=== PATIENT | female | born 1970 | race Caucasian/White ===

== ENCOUNTER 2019-07-07 10:03 | Outpatient (REF) | payer MEDICAID, SELFPAY ==
[2019-07-07 18:05] LABS: HCT 39.3 % (36.0-46.0); Mean Corp. HGB Concentration 33.1 g/dL (32.0-36.0); Mean Corpuscular Hemoglobin 27.8 pg (27.0-33.0); Mean Corpuscular Volume 84.2 fL (80-95); Mean Platelet Volume 10.3 fL (8.0-11.0); Platelet Count 215 x1000/uL (130-400); RBC 4.67 m/cumm (4.00-5.20); RBC Distribution Width 13.5 % (11.7-14.6); White Blood Cell Count 10.14 k/cumm (4.4-10.8)
[2019-07-07 18:22] LABS: ALT 25 U/L (14-59); AST 19 U/L (15-37); Albumin 4.2 g/dL (3.4-5.0); Alkaline Phosphatase 73 U/L (46-116); Anion Gap 10.4 mmol/L (3-11); BUN 14 mg/dL (7-18); Bilirubin, Total 0.3 mg/dL (0.2-1.0); CO2 24.6 mmol/L (21.0-32.0); CREATININE 0.76 mg/dL (0.55-1.02); Calcium 9.2 mg/dL (8.5-10.1); Chloride 106 mmol/L (98-107); Glucose 111 mg/dL (70-100); Potassium 4.6 mmol/L (3.5-5.1); Sodium 141 mmol/L (136-145); Total Protein 7.1 g/dL (6.4-8.2)
[2019-07-07 19:07] LABS: Hemoglobin A1C 5.7 % (4.5-6.2)
== END 2019-07-07 10:23 ==
LOC: NCHCN 10:03
PROVIDERS: PCP Nurse Practitioner Family; Visit Provider Nurse Practitioner Family
DX: R20.0 Anesthesia of skin (principal); R20.2 Paresthesia of skin; Z00.00 Encounter for general adult medical examination without abnormal findings
CPT/HCPCS: 80053; 85027; 83036

== ENCOUNTER 2019-07-14 10:27 | Outpatient (CLI) | payer MEDICAID, SELFPAY ==
--- NOTE | 2019-07-14 10:10 | DI.RAD_ITS ---
EXAM: XR HAND RT COMPLETE INDICATION: SWELLING M79.89. COMPARISON: No exams were available for comparison TECHNIQUE: 2D digital imaging was performed. FINDINGS: Three views were obtained. No bony abnormality seen. IMPRESSION:
== END 2019-07-14 10:47 ==
PROVIDERS: PCP Nurse Practitioner Family; Visit Provider Nurse Practitioner Family
DX: M79.89 Other specified soft tissue disorders (principal); R22.31 Localized swelling, mass and lump, right upper limb; M79.641 Pain in right hand
CPT/HCPCS: 73130

== ENCOUNTER 2019-07-17 01:10 | Outpatient (CLI) | payer MEDICAID, SELFPAY ==
--- NOTE | 2019-07-17 10:20 | DI.MAMMO_ITS ---
EXAM: MG MAMMO SCREENING CLINICAL HISTORY: SCREENING Z00.00 [facility]. TECHNIQUE: Mammograms were interpreted according to the usual protocol including computer analysis w MD2U CAD system, tomosynthesis and C-view imaging. COMPARISON: [id number] FINDINGS: The breasts are heterogeneously dense, which may obscure small masses, BI-RADS category C. There are no suspicious masses or microcalcifications. There are no significant changes in comparison with the prior images. IMPRESSION: BI-RADS Cat 1 - Negative Breast Density - Category C - Heterogeneously dense
== END 2019-07-17 01:30 ==
PROVIDERS: PCP Nurse Practitioner Family; Visit Provider Nurse Practitioner Family
DX: Z12.31 Encounter for screening mammogram for malignant neoplasm of breast (principal)
CPT/HCPCS: 77063; 77067

== ENCOUNTER 2020-03-17 10:12 | Outpatient (REF) | payer MEDICAID, SELFPAY ==
[2020-03-18 18:58] LABS: COVID-19 RT-PCR Result Not Detected ((See Note))
== END 2020-03-17 10:32 ==
LOC: LBN 10:12
PROVIDERS: PCP Nurse Practitioner Family; Referring Provider Family Medicine; Visit Provider Nurse Practitioner Adult Health
DX: Z11.59 Encounter for screening for other viral diseases (principal)
CPT/HCPCS: U0003

== ENCOUNTER 2020-06-25 21:18 | Emergency (ER) | payer MEDICAID, SELFPAY ==
[2020-06-25 21:21] VITALS: BP 173/77; PULSE 86; RESP 16; TEMP 36.6; O2SAT 100
--- NOTE | 2020-06-25 21:34 | W.ED.GENAD ---
Discharge Plan Disposition Patient Disposition: HOME Condition: Stable Discharge Details Clinical Impression: Conjunctivitis Primary Care Provider: John Zambrano ED Provider: Shahid Arriaga Home Meds and New Rx's Prescriptions: Continued ibuprofen 800 MG tablet 800 mg PO TID Qty: 30 RF: 2 Mirena 1 EACH intrauterine device 1 ea Intrauterine ONCE Qty: 1 RF: 0 Discharge Instructions Instructions: Conjunctivitis (ED) Additional Instructions: use the ciprofloxacin drops in each eye three times a day for 5 days if not improving in 3 days follow up with your eye technical healthcare consultant if you have severe worsening pain or decreased vision return to the emergency department Medical Decision Making 50 yo female comes in with several days of feeling her eyes are both dry and tonight had some discharge so came here. Denies trauma or falls. HAs no deep eye pain and no vision changes. On exam has 20/30 vision in both eyes individually with her glasses. No periorbital swelling, perrl, eomi. Both eyes have mild erythema of the conjunctiva with no discharge on exam and normal appearing iris. Symptoms and exam consistent with conjunctivitis, will start antibiotic drops and advised f/u with eyelet cutter if not improving and return precautions given Differential Diagnosis Differential Diagnosis: conjunctivitis, allergies HPI General Mode of arrival: ambulatory. Date/Time Provider Initiated Documentation: 06/25/20 21:18. Limitations to Documentation: no limitations. Information obtained by: patient. History of Present Illness 50 year old F presents to the emergency department with the chief complaint of eye irritation, described as moderate, and it has been constant. No relieving factors improve symptom(s), No exacerbating factors reported . Patient did receive the following treatments prior to arrival, none Related Data Home Medications Medication Instructions Recorded Confirmed ibuprofen 800 mg PO TID #30 tab-cap 01/10/14 06/25/20 Mirena 1 ea INTRAUTERINE ONCE #1 implant 04/07/18 06/25/20 Allergies Allergy/AdvReac Type Severity Reaction Status Date / Time acetaminophen [From Vicodin] Allergy Mild very itchy Unverified 06/25/20 21:29 hydrocodone bitartrate Allergy Mild very itchy Unverified 06/25/20 21:29 [From Vicodin] erythromycin base Allergy Unknown Skin Rash Unverified 06/25/20 21:29 Penicillins Allergy Unknown Skin Rash Unverified 06/25/20 21:29 General Stated Complaint: EyeProblem BERNADETTE: 5 Review of Systems All systems reviewed & are unremarkable except as noted in HPI and below Constitutional Constitutional: Denies chills, Denies fever(s) and Denies weakness Cardiovascular Cardiovascular: Denies chest pain and Denies dyspnea Respiratory Respiratory: Denies cough and Denies dyspnea Gastrointestinal Gastrointestinal: Denies abdominal pain, Denies nausea and Denies vomiting Musculoskeletal Musculoskeletal: Denies joint swelling Neurologic Neurologic: Denies weakness [facility] Medical History (Updated 06/25/20 @ 21:38 by Shahid Arriaga MD) Abnormal Pap smear of cervix 2007-treated with cryotherapy contraceptive management Mirena IUD most recent was inserted 2014. Cyst of breast, left, benign solitary s/p drainage 2010 Flank pain 2012 had episode of flank pain, seen in ED. Nl renal u/s Mastitis, left, acute Tobacco dependence, continuous pre-contemplative Surgical History (Updated 07/27/18 @ 14:35 by [facility]) Biopsy of breast (~2017) [facility] [place] right breast. Benign section x2. fine needle aspiration of left breast cyst Open Carpal Tunnel release Social History Smoking/Tobacco Use Status: Current every day Tobacco Type: cigarettes Alcohol Intake: never Drug use: Never Substance use type: does not use Do you feel safe at home: Yes Do you feel safe in your relationship?: Yes Exam Const General: no acute distress Orientation: alert [facility] Head: normal to inspection Ears: external ears normal General nose exam: external nose normal Mouth: moist mucous membranes Eyes Alignment and Position: alignment normal Neck Neck: normal visual inspection Resp Effort & Inspection: normal respiratory effort and able to speak in complete sentences Cardio Rate: regular rate Skin General skin exam: no rashes or lesions noted Neuro General: patient alert and patient oriented x3 Extrem General: normal to inspection Psych Mental Status: mental status grossly normal Course Vital Signs Vital signs: Vital Signs Temperature 36.6 C 06/25/20 21:21 Pulse 86 06/25/20 21:21 Respiratory Rate 16 06/25/20 21:21 Blood Pressure 173/77 H 06/25/20 21:21 Pulse Oximetry 100 06/25/20 21:21 Temperature 36.6 C 06/25/20 21:21 Temperature Source Temporal Artery Scan 06/25/20 21:21 Pulse 86 06/25/20 21:21 Respiratory Rate 16 06/25/20 21:21 Respiratory Effort Non-Labored 06/25/20 21:27 Blood Pressure 173/77 H 06/25/20 21:21 Blood Pressure Position Sitting 06/25/20 21:21 Pulse Oximetry 100 06/25/20 21:21 Oxygen Delivery Method Room Air 06/25/20 21:21 Oxygen Flow Rate 0 06/25/20 21:21 Pain Level 6 06/25/20 21:21 Comment 06/25/20 21:21
[2020-06-25] MEDS: Ciprofloxacin 0.3% 2.5 ML BTL OU (21:56)
== END 2020-06-25 22:05 | disposition home or self-care (01) ==
PROVIDERS: Emergency Provider Emergency Medicine; PCP Nurse Practitioner Family
DX: H57.89 Other specified disorders of eye and adnexa (principal); H10.33 Unspecified acute conjunctivitis, bilateral
CPT/HCPCS: 99283

== ENCOUNTER 2020-07-06 15:49 | Outpatient (REF) | payer MEDICAID, SELFPAY ==
[2020-07-09 14:00] LABS: Patient Race White; SARS-CoV-2 RNA Undetected (Undetected); SARS-CoV-2 Specimen Source Nasopharynx
== END 2020-07-06 16:09 ==
LOC: LBN 15:49
PROVIDERS: PCP Nurse Practitioner Family; Visit Provider Nurse Practitioner Adult Health
DX: Z11.59 Encounter for screening for other viral diseases (principal)
CPT/HCPCS: U0003

== ENCOUNTER 2020-07-18 16:23 | Outpatient (REF) | payer MEDICAID, SELFPAY ==
--- NOTE | 2020-07-18 15:30 | PAPFT_PTH ---
PATIENT: Angelika De Leon LOC: [facility] U#:[id number] AGE/SX: 50/F ROOM: RE07/18/[address]: Queenie Leyva : 1970 BED: DIS: 07/18/2020 SPEC #: [id number] RECD: 07/18/20 17:34 STATUS: SUGAR REBerry #: [id number] HOLDEN: 07/18/20 15:[address]: Queenie Leyva DEPT: [facility] Cytology RECD BY: Hanane Orellana ENTERED: 07/18/20 17:35 SP TYPE: PAPFT OTHR DR: John Zambrano Tissues: 1 - CX/ENDOCX FOR PAP SMEARS Procedures: PAP THIN PREP/UVM Screening HPV DNA PROBE Comments: [id number]
== END 2020-07-18 16:43 ==
LOC: LBN 16:23
PROVIDERS: PCP Nurse Practitioner Family; Visit Provider Obstetrics & Gynecology Gynecology
DX: Z12.4 Encounter for screening for malignant neoplasm of cervix (principal)
CPT/HCPCS: 88142; 87624

== ENCOUNTER 2021-05-26 16:18 | Outpatient (REF) | payer MEDICAID, SELFPAY ==
[2021-05-26 19:08] LABS: Hemoglobin A1C 5.9 % (<5.7)
[2021-05-26 19:11] LABS: Calculated LDL 111 mg/dL (<100); Cholesterol 183 mg/dL (<200); HDL Cholesterol 50 mg/dL (40-60); Triglyceride 110 mg/dL (<150)
== END 2021-05-26 16:19 | disposition home or self-care (01) ==
LOC: NCHCN 16:18
PROVIDERS: PCP Nurse Practitioner Family; Visit Provider Family Medicine
DX: R73.03 Prediabetes (principal); N64.4 Mastodynia; Z13.220 Encounter for screening for lipoid disorders; Z00.00 Encounter for general adult medical examination without abnormal findings
CPT/HCPCS: 80061; 83036

== ENCOUNTER 2021-07-08 02:26 | Outpatient (CLI) | payer MEDICAID, SELFPAY ==
--- NOTE | 2021-07-08 | DI.US_ITS ---
Exam(s) MAMMO DIAGNOSTIC BI US BREAST LT LIMITED EXAM: MAMMO DIAGNOSTIC BI and U/S breast LT limited CLINICAL HISTORY: DIAGNOSTIC, LT BREAST PAIN,N64.4. TECHNIQUE: Craniocaudal and mediolateral oblique Full Field Digital Mammography views with Computer Aided Diagnosis followed by Tomosynthesis and left breast ultrasound. COMPARISON: Priors available for comparison. FINDINGS: Mammography/Tomosynthesis: Masses/Architectural Distortion: None seen. Microcalcifictions: No suspicious pleomorphic-type are seen. Skin Thickening/Nipple Retraction: None. Left breast US: Echotexture: Normal appearance of the glandular tissue. Shadowing: No suspicious foci. Cyst: None. Solid lesions: None seen. Ductal dilation: None. IMPRESSION: 1. No evidence of malignancy is noted. 2. Unless there is more urgent need, follow-up screening mammography is recommended, as per [place] [employer] guidelines. Negative mammogram and ultrasound should not preclude biopsy of a clinical ly suspicious mass. 3. The findings were discussed with the patient on the date of the examination. BI-RADS Category 1 - Negative Breast Density - Category C - Heterogeneously dense Breast density Category C or D implies that the patient has dense breast tissue. Dense breast tissue can make it harder to find cancer on a mammogram. Dense breast tissue is also associated with an incr eased risk of breast cancer. This information about the result of the mammogram report was provided to the patient to raise their awareness. Use this report when you speak with the patient about their risks for breast cancer, which includes their family history. At that time, you may recommend additional screening tests (Ultrasoun d or MRI) as these tests may add significant information. A negative radiographic report should not delay biopsy if a dominant or clinically suspicious mass is present. Up to ten percent of cancers are not identified on mammography. A negative report may reinforce clinical impression. Adenosis and dense breasts may obscure an underlying neoplasm. False positive reports average 6 to 10%. Patient will receive a letter notifying them of these results.
== END 2021-07-08 02:46 ==
PROVIDERS: PCP Family Medicine; Visit Provider Family Medicine
DX: N64.4 Mastodynia (principal)
CPT/HCPCS: 76642; 77062; 77066; G0279

== ENCOUNTER 2022-06-25 15:24 | Outpatient (REF) | payer MEDICAID, SELFPAY ==
[2022-06-25 20:18] LABS: ALT 26 U/L (14-59); AST 22 U/L (15-37); Albumin 3.9 g/dL (3.4-5.0); Alkaline Phosphatase 92 U/L (46-116); Anion Gap 6.9 mmol/L (3-11); BUN 21 mg/dL (7-18); Bilirubin, Total 0.2 mg/dL (0.2-1.0); CO2 31.1 mmol/L (21.0-32.0); CREATININE 0.8 mg/dL (0.55-1.02); Calcium 9.5 mg/dL (8.5-10.1); Calculated LDL 123 mg/dL (<100); Chloride 103 mmol/L (98-107); Cholesterol 205 mg/dL (<200); Glucose 94 mg/dL (74-106); HDL Cholesterol 57 mg/dL (40-60); Potassium 4.5 mmol/L (3.5-5.1); Sodium 141 mmol/L (136-145); Total Protein 7.2 g/dL (6.4-8.2); Triglyceride 127 mg/dL (<150)
[2022-06-25 20:27] LABS: Hemoglobin A1C 5.6 % (<5.7)
== END 2022-06-25 15:25 | disposition home or self-care (01) ==
LOC: NCHCN 15:24
PROVIDERS: PCP Family Medicine; Visit Provider Nurse Practitioner Family
DX: R73.03 Prediabetes (principal)
CPT/HCPCS: 80053; 80061; 83036

== ENCOUNTER 2022-09-02 05:51 | Emergency (ER) | payer MEDICAID, SELFPAY ==
[2022-09-02 05:55] VITALS: BP 144/76; PULSE 96; RESP 16; TEMP 36.8; O2SAT 99
--- NOTE | 2022-09-02 06:00 | DI.RAD_ITS ---
Exam(s) XR CHEST 2V PA LATERAL EXAM: XR CHEST 2V PA LATERAL CLINICAL HISTORY: cough, r/o acute disease TECHNIQUE: 2D digital imaging was performed of the chest. Two images were obtained. PA and lateral views were obtained. COMPARISON: No exams were available for comparison FINDINGS: MEDIASTINUM: Normal. HEART: Normal. PULMONARY VASCULATURE: Normal. LUNGS: Clear. Hyperexpanded lungs are present consistent with underlying COPD. PLEURAL SPACE: No pleural effusion or pneumothorax. BONE:Within normal limits for the patient's age. OTHER FINDINGS:Normal. IMPRESSION: No acute pulmonary findings. DATA REPOSITORY: RADIATION DOSE DELIVERED:
[2022-09-02 06:23] LABS: Source Nasal/Nares
--- NOTE | 2022-09-02 06:30 | ED.GENADUL_ITS ---
Discharge Plan Disposition Patient Disposition: Home Condition: Improving Discharge Details Clinical Impression: Chest wall muscle strain, Cough Primary Care Provider: Noemi Ramos ED Provider: Nida Caballero Home Meds and New Rx's Prescriptions: Continued ibuprofen 800 MG tablet 800 mg PO TID Qty: 30 Mirena 1 EACH intrauterine device 1 ea Intrauterine ONCE Qty: 1 Discharge Instructions Instructions: Muscle Strain (ED), Acute Cough (ED) Additional Instructions: Your COVID test today is negative. Your chest x-ray shows no obvious evidence of pneumonia, lung injury or obvious rib fracture. A chest x-ray could miss a rib fracture and you may have a small hairline rib fracture that may be the source of your pain. Your pain also could be related to a muscle strain related to coughing. The treatment for a rib bruise or rib f racture is the same with pain control including 600 mg of ibuprofen every 6 hours and 500 mg of Tylenol every 4 hours. You can continue to alternate ice and heat to the affected area several times da lucille for 20 minutes at a time. You can continue to use [id number] Lidoderm patches as needed and directed. Follow-up with your primary care doctor in 1 week. Return to the emergency department with any worsening or new concerning symptoms. Discharge Data Discharge Date/Time-TO BE ENTERED AT DEPARTURE: 09/02/22 07:31 Discharge Physician: Nida Caballero Medical Decision Making 52-year-old female with a history of tobacco dependence presents for productive cough and left sided lower rib pain for the past week. States her cough is improving and denies any shortness of breath or fever or anterior chest pain but is mainly complaining of left-sided lower rib pain. She has not taken any medication for pain. She states she cannot take ibuprofen but has not taken this. Heart rate 96 on arrival currently 80s and regular on the monitor. Oxygen saturation 99% on room air. She is speaking in full sentences and breathing comfortably and appears in no acute distress. She is afebrile and appears nontoxic. She has reproducible left-sided lower rib pain that is tender to palpation without evidence of rash or trauma. Her lungs are clear throughout. COVID swab was obtained on arrival and negative. Patient also referred for chest x-ray due to complaint on arrival and appears unremarkable. History and presentation does not appear consistent with ACS, PE or dissection. Will give a dose of ibuprofen and reassess. Patient requesting to leave prior to results available stating she needed to leave to go to work. During my discussion with patient in room, results available. COVID-negative. Chest x-ray negative for acute disease, rib fracture or pneumothorax. Patient states she feels better after ibuprofen. Discussed again that considering her reproducible nature of symptoms, suspect most likely musculoskeletal. She was given an incentive spirometer to go to prevent pneumonia. She was advised to alternate Tylenol and Motrin. Discussed with patient and she denies a history of allergy to acetaminophen. Advised to follow up with the primary care doctor for re-evaluation. Usual and customary return precautions given prior to discharge. Medical Records Medical records reviewed: Yes I reviewed the patient's medical records. Imaging Data Radiologic Study: Radiologist's impression: XR Chest Exam date and time: 09/02/2022 6:24 AM Age: 52 years old Clinical indication: Pain; Cough; Left-sided TECHNIQUE: Imaging protocol: Radiologic exam of the chest. Views: 2 views. COMPARISON: No relevant prior studies available. FINDINGS: Lungs: Hyperaerated lungs consistent with COPD. No lobar consolidation. Few small calcified granulomata. Pleural spaces: No pneumothorax. No pleural fluid. Heart/Mediastinum: Cardiac silhouette not enlarged. Bones/joints: Unremarkable. IMPRESSION: COPD. Lab Data Lab results reviewed: Yes I reviewed the patient's lab results. Labs: Laboratory Tests Range/Units 09/02/22 06:15 COVID-19 Source Nasal/Nares SARS-CoV-2 (PCR) (Negative) Negative Sign Out No HPI General Mode of arrival: ambulatory . Date/Time Provider Initiated Documentation: 09/02/22 06:03 . Limitations to Documentation: no limitations . Information obtained by: patient . HPI Narrative: Patient is a 52-year-old female with a history of tobacco dependence who presents for productive cough and left-sided rib pain for the past week. Patient states she had a cold last week in which she had a cough productive of yellow sputum but states overall the cough is improving and is only present in the morning. She states she has been coughing frequently and for the past several days has had left-sided lower anterior rib pain. She states the pain is worse with movement and to the touch and with deep breath. She has used Lidoderm patches and applied heat but has not taken any Tylenol or ibuprofen. Related Data Home Medications Medication Instructions Recorded Confirmed ibuprofen 800 mg tablet 800 mg PO TID #30 tab-caps 01/10/14 07/18/20 levonorgestrel 20 mcg/24 hours (8 1 ea intrauterine ONCE #1 implant 04/07/18 07/18/20 yrs) 52 mg intrauterine device (Mirena) Allergies Allergy/AdvReac Type Severity Reaction Status Date / Time acetaminophen [From Vicodin] Allergy Mild very itchy Unverified 07/18/20 15:14 hydrocodone bitartrate Allergy Mild very itchy Unverified 07/18/20 15:14 [From Vicodin] erythromycin base Allergy Unknown Skin Rash Unverified 07/18/20 15:14 Penicillins Allergy Unknown Skin Rash Unverified 07/18/20 15:14 General Stated Complaint: Chest/Rib BERNADETTE: 3 Review of Systems All systems reviewed & are unremarkable except as noted in HPI and below Constitutional Constitutional: Reports as per HPI, Denies chills and Denies fever(s) Eyes Eyes: Denies blurry vision ENT Ears, Nose, Mouth, and Throat: Denies dizziness, Denies sore throat and Denies throat swelling Cardiovascular Cardiovascular: Denies chest pain and Denies dyspnea Respiratory Respiratory: Reports cough and Denies dyspnea Gastrointestinal Gastrointestinal: Denies abdominal pain, Denies diarrhea and Denies vomiting Genitourinary Genitourinary: Denies hematuria and Denies dysuria Musculoskeletal Musculoskeletal: Denies back pain and Denies numbness Comments: L anterior lower rib pain Integumentary/Breasts Skin/Breast: Denies lesions and Denies rash Neurologic Neurologic: Denies dizziness, Denies localized weakness and Denies numbness Allergic/Immunologic Allergic/Immunologic: Denies throat swelling PFSH All Active Problems (Updated 09/02/22 @ 07:20 by Nida Caballero DO) Chest wall muscle strain (Acute) Cough (Acute) Encounter for IUD removal (Acute) Abnormal Pap smear of cervix (Acute) 2007-treated with cryotherapy 2017. Nl Pap. + HPV. Medical History (Updated 09/02/22 @ 07:20 by Nida Caballero DO) contraceptive management Mirena IUD most recent was inserted 2014. Cyst of breast, left, benign solitary s/p drainage 2010 Flank pain 2012 had episode of flank pain, seen in ED. Nl renal u/s Mastitis, left, acute Tobacco dependence, continuous pre-contemplative Surgical History (Updated 07/27/18 @ 14:35 by [employer]) Biopsy of breast (~2017) [facility] [place] right breast. Benign section x2. fine needle aspiration of left breast cyst Open Carpal Tunnel release Social History Smoking/Tobacco Use Status: Current every day Tobacco Type: cigarettes Smoking risk assessment performed?: Yes Alcohol Intake: never Drug use: Never Substance use type: does not use Do you feel safe at home: Yes Do you feel safe in your relationship?: Yes Exam Const General: cooperative, uncomfortable and no acute distress Orientation: alert, awake and oriented x3 HENMT Head: normal to inspection Face and sinus: normal facial exam Eyes General: appearance normal, both eyes and all related structures Pupils: PERRL EOM: EOM intact bilaterally Neck Neck: normal visual inspection and No submandibular swelling Lymphatic: no lymphadenopathy noted Chest Chest: normal inspection of the chest Chest/axillae images: 1. Localized area of tenderness to palpation below left breast in the left anterior and lateral inferior ribs. There is no evidence of rash, lesions, edema, ecchymosis, erythema or step-off. Resp Effort & Inspection: normal respiratory effort and able to speak in complete sentences Auscultation: clear to auscultation bilaterally Cardio Rate: regular rate Rhythm: regular rhythm GI Inspection: normal to inspection Palpation: soft, not firm, not rigid and nontender Auscultation: normal bowel sounds Back/Spine/Pelvis Thoracic/Lumbar Spine: thoracic and lumbar spine normal to inspection Pelvis: no pain with anterior-posterior compression Skin General skin exam: no rashes or lesions noted Neuro General: patient alert, patient awake and patient oriented x3 Cognition: normal cognition Speech: speech normal Motor: muscle tone normal throughout Sensory Exam: no sensory deficits noted Extrem General: normal to inspection, full ROM, capillary refill normal, no calf tenderness bilaterally and no edema Psych Appearance: grossly normal Mental Status: mental status grossly normal Speech and Movement: speech and movement normal Affect: normal affect Course Vital Signs Vital signs: Vital Signs Temperature 98.3 F 09/02/22 05:55 Pulse 96 H 09/02/22 05:55 Respiratory Rate 16 09/02/22 05:55 Blood Pressure 144/76 H 09/02/22 05:55 Pulse Oximetry 99 09/02/22 05:55 Temperature 98.3 F 09/02/22 05:55 Temperature Source Oral 09/02/22 05:55 Pulse 96 H 09/02/22 05:55 Respiratory Rate 16 09/02/22 05:55 Respiratory Effort 09/02/22 06:00 Respiratory Depth Normal 09/02/22 06:00 Respiratory Pattern Normal 09/02/22 06:00 Blood Pressure 144/76 H 09/02/22 05:55 Blood Pressure Position Sitting 09/02/22 05:55 Pulse Oximetry 99 09/02/22 05:55 Oxygen Delivery Method Room Air 09/02/22 05:55 Oxygen Flow Rate 0 09/02/22 05:55 Pain Level 5 09/02/22 05:55 Lab/Test Results Lab/Test Results: Laboratory Tests Range/Units 09/02/22 06:15 COVID-19 Source Nasal/Nares
[2022-09-02] MEDS: Ibuprofen 600 MG TAB PO (06:50)
[2022-09-02 06:55] LABS: COVID-19 PCR Negative (Negative)
--- NOTE | 2022-09-02 07:14 | DI.VRAD_ITS ---
PROCEDURE INFORMATION: Exam: XR Chest Exam date and time: 09/02/2022 6:24 AM Age: 52 years old Clinical indication: Pain; Cough; Left-sided TECHNIQUE: Imaging protocol: Radiologic exam of the chest. Views: 2 views. COMPARISON: No relevant prior studies available. FINDINGS: Lungs: Hyperaerated lungs consistent with COPD. No lobar consolidation. Few small calcified granulomata. Pleural spaces: No pneumothorax. No pleural fluid. Heart/Mediastinum: Cardiac silhouette not enlarged. Bones/joints: Unremarkable. IMPRESSION: COPD. Dictated and Authenticated by: Gorge Fraire MD. Ordering:KIRSTY Alva MD
== END 2022-09-02 07:31 | disposition home or self-care (01) ==
PROVIDERS: Emergency Provider Physician Assistant; PCP Family Medicine
DX: S29.011A Strain of muscle and tendon of front wall of thorax, initial encounter (principal); R05.9 Cough, unspecified; F17.210 Nicotine dependence, cigarettes, uncomplicated; Z20.822 Contact with and (suspected) exposure to COVID-19; X58.XXXA Exposure to other specified factors, initial encounter
CPT/HCPCS: 87635; 99283; 71046; 99282

== ENCOUNTER 2022-11-11 12:12 | Outpatient (REF) | payer MEDICAID, SELFPAY ==
[2022-11-13 10:29] LABS: Syphilis Serology (RPR) Negative (Negative)
[2022-11-13 10:32] LABS: HIV-1/2 Ag & Ab Screen Negative (Negative)
[2022-11-13 10:40] LABS: Hepatitis C Ab w Rflx HCV PCR Negative (Negative)
== END 2022-11-11 12:13 | disposition home or self-care (01) ==
LOC: NCHCN 12:12
PROVIDERS: PCP Family Medicine; Visit Provider Nurse Practitioner Family
DX: Z11.3 Encounter for screening for infections with a predominantly sexual mode of transmission (principal)
CPT/HCPCS: 86803; 87389; 87491; 87591; 86592

== ENCOUNTER 2022-11-18 15:44 | Outpatient (REF) | payer MEDICAID, SELFPAY ==
[2022-11-20 12:55] LABS: Chlamydia Result Negative (Negative); GC Result Negative (Negative)
== END 2022-11-18 15:45 | disposition home or self-care (01) ==
LOC: NCHCN 15:44
PROVIDERS: PCP Family Medicine; Visit Provider Nurse Practitioner Family
DX: Z11.3 Encounter for screening for infections with a predominantly sexual mode of transmission (principal)
CPT/HCPCS: 87491; 87591

== ENCOUNTER 2022-11-26 00:47 | Outpatient (CLI) | payer MEDICAID, SELFPAY ==
--- NOTE | 2022-11-26 | DI.CTLCSR_ITS ---
Exam(s) CT CHEST LUNG CANCER SCREEN EXAM: CT CHEST LUNG CANCER SCREEN CLINICAL HISTORY: SCREENING FOR LUNG CA, SMOKER, F17.200. TECHNIQUE: Imaging Protocol: Low Dose Technique CONTRAST MATERIAL: None COMPARISON: CR,XR XR CHEST 2V PA LATERAL from 09/02/2022 FINDINGS: CHEST: LUNGS: There is a tiny 1 millimeter benign-appearing subpleural nodule in the lateral aspect of the l eft upper lobe.. There is also a 4 x 2 millimeter benign appearing fissure related left lung nodule (series 2/image 73). Also another slightly more lateral fissure related similar size nodule (series 2/image 77). No pleural effusions. In the opposite-right lung there are no significant focal findings. No pleural effusions. MEDIASTINUM: There is no obvious hilar nor mediastinal adenopathy. CARDIAC: Heart size is normal. There is no pericardial effusion.Caliber of the thoracic aorta is wit hin normal limits. OTHER: No significant adrenal masses. No splenomegaly OSSEOUS: No significant osseous lesions.. IMPRESSION: 1. Small benign-appearing left lung nodules. 2. No pleural effusions nor obvious intrathoracic adenopathy. 3. Lung RADS Cat 2 - Benign Appearance / Behavior: Nodules with a very low likelihood of becoming a c linically active cancer due to size or lack of growth Recommend repeat scan in 12 months. Lung-RADS 1.0 CATEGORIES: Category 0 - Prior chest CT exam(s) being located for comparison. Category 1 - Annual screening in 12 months. No nodules or definitely benign nodules. Category 2 - Annual screening in 12 months. Benign appearance. Nodules with low likelihood of becomin g active cancer. Category 3 - 6-month follow-up. Probably benign. Short-term follow-up suggested. Nodules with low lik elihood of becoming active cancer. Category 4A - 3-month follow-up and CT/PET if >8 mm in size. Suspicious finding. Findings which requi re additional testing. Category 4B - Findings which require additional testing and tissue sampling. Category 4X - Category 3 or 4 nodules with additional features or imaging findings that increases the suspicion of malignancy. Modifier S- Potentially clinically significant findings (non lung cancer) RADIATION DOSE DELIVERED: 70.95mGy.cm Total DLP DATA REPOSITORY: All CT scans at this facility are submitted to the National Radiology Data Registry (NRDR) Dose Index Registry (DIR) with the [employer] ([employer]). RADIATION OPTIMIZATION: All CT scans at this facility use at least one of these dose optimization te chniques: automated exposure control; mA and/or kV adjustment per patient size (includes targeted exa ms where dose is matched to clinical indication); or iterative reconstruction.
== END 2022-11-26 01:07 ==
LOC: DI 00:48
PROVIDERS: PCP Family Medicine; Visit Provider Nurse Practitioner Family
DX: Z12.2 Encounter for screening for malignant neoplasm of respiratory organs (principal); F17.210 Nicotine dependence, cigarettes, uncomplicated; R91.8 Other nonspecific abnormal finding of lung field
CPT/HCPCS: 71271

== ENCOUNTER → 2023-07-26 03:32 | Outpatient (CLI) | payer MEDICAID, SELFPAY ==
--- NOTE | 2023-07-26 17:30 | DI.MAMMO_ITS ---
Exam(s) MAMMO SCREENING EXAM: MAMMO SCREENING CLINICAL HISTORY: SCREENING, Z12.39. TECHNIQUE: Bilateral full field digital CC and MLO mammographic images were obtained with 3D tomosyn thesis and utilizing computer aided detection (CAD). COMPARISON: Prior mammograms were reviewed. FINDINGS: Fibroglandular tissue pattern is moderately dense There are no obvious new spiculated masses nor malignant appearing microcalcification groups. There is no significant architectural distortion nor skin thickening-retraction. IMPRESSION: No radiographic evidence of malignancy. BI-RADS Category 1 - Negative Breast Density - Category C - Heterogeneously dense Breast density Category C or D implies that the patient has dense breast tissue. Dense breast tissue can make it harder to find cancer on a mammogram. Dense breast tissue is also associated with an incr eased risk of breast cancer. This information about the result of the mammogram report was provided to the patient to raise their awareness. Use this report when you speak with the patient about their risks for breast cancer, which includes their family history. At that time, you may recommend additional screening tests (Ultrasoun d or MRI) as these tests may add significant information. A negative radiographic report should not delay biopsy if a dominant or clinically suspicious mass is present. Up to ten percent of cancers are not identified on mammography. A negative report may reinforce clinical impression. Adenosis and dense breasts may obscure an underlying neoplasm. False positive reports average 6 to 10%. Patient will receive a letter notifying them of these results.
== END ==
PROVIDERS: PCP Family Medicine; Visit Provider Nurse Practitioner Family
DX: Z12.31 Encounter for screening mammogram for malignant neoplasm of breast (principal)
CPT/HCPCS: 77063; 77067

== ENCOUNTER 2023-12-16 17:38 | Outpatient (REF) | payer MEDICAID, SELFPAY ==
[2023-12-16 14:32] LABS: Epithelial Cells Few HPF (Negative); RBC Negative HPF (0-2)
[2023-12-16 14:33] LABS: Bacteria Rare HPF (Negative); C & S Indicated? C&S Done As Ordered; Casts Negative LPF (Negative); Crystals Negative HPF (Negative); Mucus Negative (Negative)
== END 2023-12-16 17:39 | disposition home or self-care (01) ==
LOC: LBN 17:38
PROVIDERS: PCP Nurse Practitioner Family; Visit Provider Physician Assistant Medical
DX: R30.0 Dysuria (principal)
CPT/HCPCS: 81015; 87086

== ENCOUNTER 2025-02-12 16:08 | Outpatient (REF) | payer BC, MEDICAID, SELFPAY | END 2025-02-12 16:09 | disposition home or self-care (01) | LOC: LBN 16:08 | PROVIDERS: Visit Provider Obstetrics & Gynecology | DX: Z11.51 Encounter for screening for human papillomavirus (HPV) (principal); Z01.419 Encounter for gynecological examination (general) (routine) without abnormal findings | CPT/HCPCS: 88142; 87624 ==

== ENCOUNTER 2025-03-10 16:19 | Emergency (ER) | payer BC, SELFPAY ==
--- NOTE | 2025-03-10 16:15 | RT.EKG_ITS ---
APPROVED REPORT Exam: Resting ECG Reason for Exam: Lightheadedness Patient Location: E HR:95 bpm ECG Measurements Heart Rate 95 AXIS OK 135 P 83 QRSd 83 QRS 69 QT 368 T 60 QTc 464 Conclusion Sinus rhythm at a rate of 95 without acute ischemic change with inferior Q waves
[2025-03-10 16:21] VITALS: BP 169/71; PULSE 106; RESP 20; TEMP 36.6; O2SAT 96
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
[2025-03-10 17:01] LABS: Abs Immature Grans 0.04 10^3/uL (0.0-0.06); Absolute Basophil Count 0.09 10^3/uL (0.0-0.2); Absolute Eosinophil Count 0.18 10^3/uL (0.0-0.7); Absolute Lymphocyte Count 4.82 10^3/uL (1.2-3.4); Absolute Monocyte Count 0.96 10^3/uL (0.1-0.8); Basophils % 0.6 %; Eosinophils % 1.2 %; HCT 41.1 % (36.0-46.0); HGB 13.7 g/dL (11.2-15.7); Immature Grans % 0.3 %; Lymphocytes % 32.7 %; MCH 27.8 pg (27.0-33.0); MCHC 33.3 % (32.0-36.0); MCV 83 fL (80-95); MPV 9.5 fL (8.0-11.0); Monocytes % 6.5 %; Neutrophils % 58.7 %; Platelet Count 253 10^3/uL (130-400); RBC 4.93 10^6/uL (3.93-5.22); RDW 12.9 % (11.7-14.6); RDW-SD 39.1 fL; WBC 14.73 10^3/uL (4.4-10.8)
[2025-03-10 17:02] LABS: Absolute Neutrophil Count 8.65 10^3/uL (1.2-6.7)
[2025-03-10 17:17] VITALS: RESP 16
[2025-03-10 17:19] LABS: ALT 23 U/L (14-59); AST 18 U/L (15-37); Albumin 4.2 g/dL (3.4-5.0); Alkaline Phosphatase 81 U/L (46-116); Anion Gap 7.1 mmol/L (3-11); BUN 16 mg/dL (7-18); Bilirubin, Total 0.3 mg/dL (0.2-1.0); CO2 29.9 mmol/L (21.0-32.0); CREATININE 0.9 mg/dL (0.55-1.02); Calcium 9.9 mg/dL (8.5-10.1); Chloride 105 mmol/L (98-107); Estimated GFR 74.57 (mL/min/1.73m2); Glucose 111 mg/dL (74-106); Potassium 3.6 mmol/L (3.5-5.1); Sodium 142 mmol/L (136-145); Total Protein 7.8 g/dL (6.4-8.2); Troponin I 5 ng/L (<or=51)
[2025-03-10 17:21] VITALS: BP 153/63
--- NOTE | 2025-03-12 15:27 | NUR.NOTE ---
Patient called to request that allergy list be amended to state that she has anaphylaxis with PCN. Also, inquired about blood pressure measurements during her visit with us.
== END 2025-03-10 17:35 | disposition home or self-care (01) ==
PROVIDERS: Emergency Provider Emergency Medicine
DX: R53.83 Other fatigue (principal)
CPT/HCPCS: 99283; 99284; 36415; 80053; 93005; 84484; 85025; 93010

== ENCOUNTER 2025-03-15 16:15 | Outpatient (REF) | payer BC, MEDICAID, SELFPAY ==
[2025-03-15 16:00] LABS: Bilirubin Negative (Negative); Blood Negative (Negative); Clarity Clear (Clear); Glucose Negative (Negative); Ketones Negative (Negative); Leukocyte Esterase Small (Negative); Nitrite Negative (Negative); Urobilinogen 0.2 mg/dL (Up to 0.2); pH 6.5 (5-8)
[2025-03-15 16:02] LABS: Abs Immature Grans 0.05 10^3/uL (0.0-0.06); Absolute Eosinophil Count 0.23 10^3/uL (0.0-0.7); Absolute Monocyte Count 0.94 10^3/uL (0.1-0.8); Absolute Neutrophil Count 7.69 10^3/uL (1.2-6.7); Basophils % 0.5 %; Eosinophils % 1.8 %; HCT 39.5 % (36.0-46.0); HGB 12.9 g/dL (11.2-15.7); Immature Grans % 0.4 %; MCH 27.4 pg (27.0-33.0); MCHC 32.7 % (32.0-36.0); MCV 84 fL (80-95); MPV 10.7 fL (8.0-11.0); Monocytes % 7.3 %; Platelet Count 253 10^3/uL (130-400); RBC 4.71 10^6/uL (3.93-5.22); RDW 12.8 % (11.7-14.6); RDW-SD 38.9 fL; WBC 12.82 10^3/uL (4.4-10.8)
[2025-03-15 16:04] LABS: Absolute Basophil Count 0.06 10^3/uL (0.0-0.2); Absolute Lymphocyte Count 3.85 10^3/uL (1.2-3.4)
[2025-03-15 16:30] LABS: Bacteria Moderate HPF (Negative); C & S Indicated? No/Sq. Contamination; Crystals Negative HPF (Negative); Epithelial Cells Many HPF (Negative); Mucus Trace (Negative); RBC 0-2 HPF (0-2)
[2025-03-15 16:32] LABS: Calculated LDL 96 mg/dL (<100); Cholesterol 190 mg/dL (<200); HDL Cholesterol 49 mg/dL (>or=50); TSH 2.12 uIU/mL (0.36-3.74); Triglyceride 226 mg/dL (<150)
== END 2025-03-15 16:16 | disposition home or self-care (01) ==
LOC: NCHCN 16:15
PROVIDERS: Visit Provider Student in an Organized Health Care Education/Training Program
DX: R35.0 Frequency of micturition (principal); I10 Essential (primary) hypertension; Z13.220 Encounter for screening for lipoid disorders; Z86.2 Personal history of diseases of the blood and blood-forming organs and certain disorders involving the immune mechanism
CPT/HCPCS: 80061; 81003; 81015; 84443; 85025

== ENCOUNTER 2025-04-03 02:14 | Outpatient (CLI) | payer BC, MEDICAID, SELFPAY ==
--- NOTE | 2025-04-03 16:08 | DI.MAMMO_ITS ---
Exam(s) MAMMO SCREENING EXAM: MAMMO SCREENING CLINICAL HISTORY: screening,Z12.39 TECHNIQUE: Mammograms were interpreted according to the usual protocol including computer analysis with CAD system, tomosynthesis and C-view imaging. COMPARISON: 2015 through 2022. FINDINGS: The breasts are composed of heterogeneously dense fibroglandular densities, Breast Density category C. No suspicious masses or suspicious microcalcifications are seen. No skin thickening or abnormal axillary lymph nodes are seen. There has been no significant change from prior exams. IMPRESSION: BI-RADS Category 1, Negative mammogram. Yearly screening mammography is recommended. Breast Density: Category C - The breasts are heterogeneously dense, which may obscure small masses. Breast density Category C or D implies that the patient has dense breast tissue. Dense breast tissue can make it harder to find cancer on a mammogram. Dense breast tissue is also associated with an increased risk of breast cancer. This information about the result of the mammogram report was provided to the patient to raise their awareness. Use this report when you speak with the patient about their risks for breast cancer, which includes their family history. At that time, you may recommend additional screening tests (Ultrasound or MRI) as these tests may add significant information. A negative radiographic report should not delay biopsy if a dominant or clinically suspicious mass is present. Up to ten percent of cancers are not identified on mammography. A negative report may reinforce clinical impression. Adenosis and dense breasts may obscure an underlying neoplasm. False positive reports average 6 to 10%.
== END 2025-04-03 02:34 ==
PROVIDERS: PCP Student in an Organized Health Care Education/Training Program; Visit Provider Obstetrics & Gynecology
DX: Z12.31 Encounter for screening mammogram for malignant neoplasm of breast (principal); R92.333 Mammographic heterogeneous density, bilateral breasts
CPT/HCPCS: 77063; 77067

== ENCOUNTER 2025-04-19 14:46 | Outpatient (REF) | payer BC, MEDICAID, SELFPAY ==
[2025-04-19 19:56] LABS: Anion Gap 8.3 mmol/L (3-11); BUN 13 mg/dL (7-18); CO2 28.7 mmol/L (21.0-32.0); Calcium 9.1 mg/dL (8.5-10.1); Chloride 105 mmol/L (98-107); Estimated GFR 104.63 (mL/min/1.73m2); Glucose 111 mg/dL (74-106); Potassium 3.9 mmol/L (3.5-5.1); Sodium 142 mmol/L (136-145)
== END 2025-04-19 14:47 | disposition home or self-care (01) ==
LOC: NCHCN 14:46
PROVIDERS: PCP Student in an Organized Health Care Education/Training Program; Visit Provider Student in an Organized Health Care Education/Training Program
DX: I10 Essential (primary) hypertension (principal)
CPT/HCPCS: 80048

== ENCOUNTER 2025-05-09 21:12 | Outpatient (REF) | payer BC, MEDICAID, SELFPAY ==
[2025-05-09 15:59] LABS: ALT 23 U/L (14-59); AST 19 U/L (15-37); Albumin 4.1 g/dL (3.4-5.0); Alkaline Phosphatase 85 U/L (46-116); Anion Gap 8.1 mmol/L (3-11); BUN 16 mg/dL (7-18); Bilirubin, Total 0.3 mg/dL (0.2-1.0); CO2 28.9 mmol/L (21.0-32.0); Calcium 9.1 mg/dL (8.5-10.1); Chloride 105 mmol/L (98-107); Creatine Kinase 64 U/L (26-192); Estimated GFR 104.63 (mL/min/1.73m2); Glucose 110 mg/dL (74-106); Magnesium 2.0 mg/dL (1.8-2.4); Potassium 4.0 mmol/L (3.5-5.1); Sodium 142 mmol/L (136-145); TSH 2.16 uIU/mL (0.36-3.74); Total Protein 7.2 g/dL (6.4-8.2)
== END 2025-05-09 21:13 | disposition home or self-care (01) ==
LOC: NCHCN 21:12
PROVIDERS: PCP Student in an Organized Health Care Education/Training Program; Visit Provider Student in an Organized Health Care Education/Training Program
DX: I10 Essential (primary) hypertension (principal); R25.2 Cramp and spasm
CPT/HCPCS: 80053; 82550; 83735; 84443

== ENCOUNTER 2025-06-04 16:17 | Outpatient (CLI) | payer BC, MEDICAID, SELFPAY ==
[2025-06-04 16:03] LABS: Anion Gap 9.4 mmol/L (3-11); BUN 18 mg/dL (7-18); CO2 26.6 mmol/L (21.0-32.0); Calcium 8.9 mg/dL (8.5-10.1); Chloride 105 mmol/L (98-107); Estimated GFR 100.81 (mL/min/1.73m2); Glucose 100 mg/dL (74-106); Potassium 4.0 mmol/L (3.5-5.1); Sodium 141 mmol/L (136-145)
== END 2025-06-04 16:18 | disposition home or self-care (01) ==
LOC: LBO 16:19
PROVIDERS: PCP Student in an Organized Health Care Education/Training Program; Visit Provider Student in an Organized Health Care Education/Training Program
DX: I10 Essential (primary) hypertension (principal)
CPT/HCPCS: 36415; 80048

== ENCOUNTER 2025-08-24 04:39 | Emergency (ER) | payer BC, MEDICAID, SELFPAY ==
[2025-08-24] VITALS (8 sets, daily range): BP systolic 100–165; BP diastolic 48–89; PULSE 79–104; RESP 14–27; TEMP 36.5–36.6; O2SAT 97–100
--- NOTE | 2025-08-24 04:30 | RT.EKG_ITS ---
APPROVED REPORT Exam: Resting ECG Reason for Exam: High bp, high pulse Patient Location: E HR:95 bpm ECG Measurements Heart Rate 95 AXIS CO 140 P 63 QRSd 80 QRS 63 QT 359 T 48 QTc 453 Conclusion Sinus rhythm...normal P axis, V-rate 60- 99 I have reviewed and interpreted ECG and agree with software generated interpretation.
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
[2025-08-24] MEDS: Ondansetron 4 MG/2 ML VIAL IVP (05:20)
[2025-08-24] MEDS: Pantoprazole 40 MG VIAL IVP (05:23)
[2025-08-24] MEDS: Lactated Ringers 1,000 ML 1000 ML IV (05:26)
[2025-08-24] MEDS: Sucralfate 1 GM TAB PO (05:38)
[2025-08-24] MEDS: Mylanta Suspension 30 ML CUP PO (05:39)
[2025-08-24 06:07] LABS: Abs Immature Grans 0.03 10^3/uL (0.0-0.06); HCT 42.7 % (36.0-46.0); HGB 13.9 g/dL (11.2-15.7); Immature Grans % 0.3 %; MCH 27.1 pg (27.0-33.0); MCHC 32.6 % (32.0-36.0); MCV 83 fL (80-95); MPV 9.5 fL (8.0-11.0); Platelet Count 249 10^3/uL (130-400); RBC 5.12 10^6/uL (3.93-5.22); RDW 12.5 % (11.7-14.6); RDW-SD 38.3 fL; WBC 10.06 10^3/uL (4.4-10.8)
--- NOTE | 2025-08-24 06:16 | TELEP.MEDR_ITS ---
Date of service: 08/24/25 Time of Service: 06:16 Telepharmacy Home Med Rec Allergies Allergies: Penicillins Allergy (Severe, Verified 08/24/25 05:04) Anaphylaxis doxycycline Allergy (Intermediate, Verified 08/24/25 05:05) Hives acetaminophen (From Vicodin) Allergy (Mild, Verified 08/24/25 05:04) very itchy hydrocodone bitartrate (From Vicodin) Allergy (Mild, Verified 08/24/25 05:04) very itchy erythromycin base Allergy (Unknown, Verified 08/24/25 05:04) Skin Rash Interview Person Interviewed: * Patient Quality Quality of Interview/Accuracy of Medication List: Excellent Sources Sources used to compile medication list: SureScripts Changes made to Home Medication List: ADDITIONS: * Multivitamin 1 tablet PO daily DELETIONS: * none CHANGES: * none Additional Notes Additional Notes: * Patient takes medications around 3AM daily Recommended Changes Recommended Changes(reason for recommendation): * none Attestation: The home medication list is now updated to the best of my knowledge and is ready to be reconciled by the provider. Please contact the TelePharmacy Medication Reconciliation Pharmacist at for any questions.
[2025-08-24 06:17] LABS: Lipase 28 U/L (<53)
[2025-08-24 06:19] LABS: ALT 21 U/L (10-49); AST 23 U/L (<34); Albumin 4.6 g/dL (3.4-5.0); Alkaline Phosphatase 79 U/L (46-116); Anion Gap 5.7 mmol/L (3-11); BUN 18 mg/dL (9-23); Bilirubin, Total 0.30 mg/dL (0.2-1.2); CO2 27.3 mmol/L (20.0-31.0); Calcium 9.9 mg/dL (8.3-10.6); Chloride 109 mmol/L (98-107); Glucose 104 mg/dL (74-106); Potassium 4.4 mmol/L (3.5-5.1); Sodium 142 mmol/L (136-145); Total Protein 7.6 g/dL (5.7-8.2); Troponin I 5 ng/L (<35)
[2025-08-24 06:23] LABS: TSH (W/Ref FT4) 3.00 uIU/mL (0.55-4.78)
[2025-08-24 06:36] LABS: Glucose Negative (Negative)
[2025-08-24 06:51] LABS: Troponin I 6 ng/L (<35)
[2025-08-24] MEDS: Ondansetron O.D.T. 4 MG TABEF, 3 TABS/BTL PO (07:00)
== END 2025-08-24 07:10 | disposition home or self-care (01) ==
PROVIDERS: Emergency Provider Student in an Organized Health Care Education/Training Program; PCP Student in an Organized Health Care Education/Training Program
DX: R11.0 Nausea (principal); R51.9 Headache, unspecified
CPT/HCPCS: 36415; 80053; 81025; 83690; 93005; 96361; 96374; 96375; 99284; 81003; 84443; 84484; 85025; 93010; J2405; J2470